=== PATIENT | female | born 1995 | race Caucasian/White ===

== ENCOUNTER 2024-08-08 20:43 | Outpatient (CLI) | payer OTHER, MEDICAID, SELFPAY ==
[2024-08-08 20:50] VITALS: BMI 35.4
[2024-08-08 21:06] VITALS: PULSE 75; RESP 16; TEMP 36.7; O2SAT 100
[2024-08-08 21:08] VITALS: BP 146/82; PULSE 71
[2024-08-08 21:22] VITALS: BP 139/81; PULSE 77
[2024-08-08 21:33] LABS: Hematocrit 34.3 % (37-47); Hemoglobin 11.9 g/dL (12.0-15.0); Mean Corp Hgb Conc 34.7 g/dL (32-36); Mean Corpuscular Hgb 30.7 pg (27.0-32.0); Mean Corpuscular Volume 88.6 fL (81-99); Mean Platelet Vol. 10.5 fl (6.2-12.0); Platelet Count 233 K/mm3 (150-450); RBC Distribution Width CV 13.2 % (11.6-14.6); RBC Distribution Width SD 42.8 fl (35.1-43.9); Red Blood Count 3.87 M/mm3 (4.2-5.4); White Blood Count 7.9 K/mm3 (4.4-11.0)
[2024-08-08 21:37] VITALS: BP 124/68; PULSE 75
[2024-08-08 21:52] VITALS: BP 129/76; PULSE 80
[2024-08-08 22:07] VITALS: BP 134/78; PULSE 73
[2024-08-08 22:07] LABS: AST(SGOT) 37 U/L (<=31); Alanine Aminotransfer ALT/SGPT 46 U/L (<=34); Creatinine, Serum 0.56 mg/dL (0.70-1.20); EST Glomerular Filtration Rate 126 (>60); Estimated Creatinine Clearance 186.77 ml/min (50-250); Uric Acid 6.7 mg/dL (2.6-6.0)
[2024-08-08 22:08] LABS: Protein, Urine (Random) 23.9 mg/dL (0.0-12.0); Protein:Creat Ratio 272 mg/g CRE (0-200)
[2024-08-09 08:54] VITALS: BP 121/75; PULSE 114
[2024-08-09 08:55] VITALS: PULSE 115; O2SAT 97
[2024-08-09 09:00] VITALS: PULSE 117; O2SAT 97
[2024-08-09 09:05] VITALS: PULSE 108; O2SAT 98
[2024-08-09 09:09] VITALS: BP 116/74; PULSE 113
[2024-08-09 09:10] VITALS: PULSE 116; O2SAT 98
--- NOTE | 2024-08-09 09:44 | OB.TRI.NOTE ---
HPI - General General Date of Admission: 08/08/24 Date of Service: 08/08/24 Chief Complaint: elevated BP at home HPI Narrative STEPHAN DOMINGUEZ, is a 29 F who presents c/o elevated BP at home. Maternal Data Information Final JIM: 09/06/24 Gestational age: 35 6/7 PFSH PFSH Home Medications ?Medication ?Instructions ?Recorded ?Last Taken ?Type aspirin 81 mg capsule 81 mg PO DAILY 08/08/24 08/08/24 History vit 115-iron fum 29 mg tab 08/08/24 08/07/24 History iron-folic acid 1 mg-dss 25 mg tablet Allergy/AdvReac Type Severity Reaction Status Date / Time No Known Allergies Allergy Verified 08/08/24 21:01 NST FHR Rate Baby A Baseline: 135 Variability:: Moderate Accelerations:: 15 x 15 Decelerations:: None NST Reactive:: Yes Uterine Activity:: irreg ctxs Assessment & Plan (1) 35 weeks gestation of : (2) High risk multigravida in third trimester: (3) Elevated blood pressure affecting , antepartum: PLAN: Plan Elevated BP at home, does not meet gest HTN criteria here, preeclampsia labs normal. D/c home w/ close f/u and return/call for signs/symptoms of preeclampsia
== END 2024-08-08 22:30 | disposition home or self-care (01) ==
LOC: WPOUT 20:45 → WP 20:46
PROVIDERS: PCP Internal Medicine; Visit Provider Obstetrics & Gynecology
DX: O99.891 Other specified diseases and conditions complicating pregnancy (principal); R03.0 Elevated blood-pressure reading, without diagnosis of hypertension; Z79.82 Long term (current) use of aspirin; Z3A.35 35 weeks gestation of pregnancy
CPT/HCPCS: 36415; 59025; 59050; 82565; 82570; 84156; 84450; 84460; 84550; 85027; 99221; G0378

== ENCOUNTER 2024-08-13 15:30 | Outpatient (CLI) | payer OTHER, MEDICAID, SELFPAY ==
[2024-08-13] VITALS (8 sets, daily range): BP systolic 125–137; BP diastolic 72–85; PULSE 71–84; RESP 16; TEMP 37.3; O2SAT 100; BMI 35.2
[2024-08-13 16:28] LABS: Hematocrit 33.7 % (37-47); Hemoglobin 11.5 g/dL (12.0-15.0); Mean Corp Hgb Conc 34.1 g/dL (32-36); Mean Corpuscular Hgb 30.2 pg (27.0-32.0); Mean Corpuscular Volume 88.5 fL (81-99); Mean Platelet Vol. 10.4 fl (6.2-12.0); Platelet Count 224 K/mm3 (150-450); RBC Distribution Width CV 13.2 % (11.6-14.6); RBC Distribution Width SD 42.5 fl (35.1-43.9); Red Blood Count 3.81 M/mm3 (4.2-5.4); White Blood Count 8.9 K/mm3 (4.4-11.0)
[2024-08-13 17:05] LABS: Protein, Urine (Random) 9.4 mg/dL (0.0-12.0); Protein:Creat Ratio 278 mg/g CRE (0-200)
[2024-08-13 17:44] LABS: AST(SGOT) 44 U/L (<=31); Alanine Aminotransfer ALT/SGPT 32 U/L (<=34); Creatinine, Serum 0.51 mg/dL (0.70-1.20); EST Glomerular Filtration Rate 129 (>60); Estimated Creatinine Clearance 204.77 ml/min (50-250); Uric Acid 5.9 mg/dL (2.6-6.0)
--- NOTE | 2024-08-15 08:54 | OB.TRI.NOTE ---
HPI - General General Date of Admission: 08/13/24 Date of Service: 08/13/24 Chief Complaint: elevated BP HPI Narrative STEPHAN DOMINGUEZ, is a 29 F who presents with eleated BP Maternal Data Information Final JIM: 09/06/24 Gestational age: 36 4/7 PFSH PFS Home Medications ?Medication ?Instructions ?Recorded ?Last Taken ?Type aspirin 81 mg capsule 81 mg PO DAILY 08/08/24 08/12/24 21:00 History 81 mg vit 115-iron fum 29 mg tab 08/08/24 08/13/24 07:00 History iron-folic acid 1 mg-dss 25 mg 1 TAB tablet cetirizine 10 mg tablet (24Hour 10 mg PO DAILY PRN allergy symptoms 08/13/24 08/13/24 07:00 History Allergy) 10 mg Allergy/AdvReac Type Severity Reaction Status Date / Time No Known Allergies Allergy Verified 08/13/24 16:05 NST FHR Rate Baby A Baseline: 140 Variability:: Moderate Accelerations:: 15 x 15 Decelerations:: None NST Reactive:: Yes Uterine Activity:: mild irritability, no regular ctxs Assessment & Plan (1) Elevated blood pressure affecting , antepartum: PLAN: no evidence of severe preeclampsia, monitor closely, f/u in office 08/15 or return prn kick counts (2) High risk multigravida in third trimester: (3) 36 weeks gestation of :
== END 2024-08-13 17:42 | disposition home or self-care (01) ==
LOC: WPOUT 15:34 → WP 15:34
PROVIDERS: PCP Internal Medicine; Referring Provider Obstetrics & Gynecology; Visit Provider Obstetrics & Gynecology
DX: O99.891 Other specified diseases and conditions complicating pregnancy (principal); R03.0 Elevated blood-pressure reading, without diagnosis of hypertension; Z79.82 Long term (current) use of aspirin; Z3A.36 36 weeks gestation of pregnancy
CPT/HCPCS: 36415; 59025; 59050; 82565; 82570; 84156; 84450; 84460; 84550; 85027; 99221; G0378

== ENCOUNTER 2024-08-18 14:05 | Inpatient (IN) | payer OTHER, MEDICAID, SELFPAY ==
[2024-08-18] VITALS (19 sets, daily range): BP systolic 134–177; BP diastolic 73–91; PULSE 57–93; RESP 15–20; TEMP 37.2–37.8; O2SAT 99–100; BMI 35.4
[2024-08-18] MEDS: Lactated Ringers 1,000 ML 50 ML IV ×2 (14:35→22:33)
--- NOTE | 2024-08-18 14:38 | PCM.HP.OB ---
HPI - General General Date of Admission: 08/18/24 Date of Service: 08/18/24 Chief Complaint: IOL HPI Narrative STEPHAN DOMINGUEZ, is a 29 F who presents for induction of labor for GHTN. Also with gestational diabetes controlled by diet. EFW 87% last week. Maternal Data Information Final JIM: 09/06/24 Gestational age: 37+2 PFSH PFSH Medical History (Updated 08/18/24 @ 14:57 by Michelle Harris) Anxiety Gestational HTN Gestational diabetes Home Medications ?Medication ?Instructions ?Recorded ?Last Taken ?Type aspirin 81 mg capsule 81 mg PO DAILY 08/08/24 08/17/24 History vit 115-iron fum 29 mg tab PO DAILY 08/08/24 08/18/24 History iron-folic acid 1 mg-dss 25 mg tablet cetirizine 10 mg tablet (24Hour 10 mg PO DAILY PRN allergy symptoms 08/13/24 08/13/24 07:00 History Allergy) 10 mg Allergy/AdvReac Type Severity Reaction Status Date / Time No Known Allergies Allergy Verified 08/13/24 16:05 Surgical History (Updated 08/18/24 @ 14:57 by Michelle Harris) H/O elbow surgery Hx of tonsillectomy Social History Smoking Status: Never smoker History 3 Elective abortions Hx Para 1 Spontaneous abortions Hx # Term Pregnancies Ectopic pregnancies Hx # Pregnancies Multiple births # of living children NST FHR Rate Baby A Baseline: 145 Variability:: Moderate Accelerations:: 15 x 15 Decelerations:: None NST Reactive:: Yes ROS Constitutional Constitutional: Denies fatigue, fever(s) or malaise Eyes Eyes: Denies change in vision ENT HEENT: Denies dizziness or headache(s) Cardiovascular Cardiovascular: Denies chest pain, dyspnea or lightheadedness Respiratory/Chest Respiratory/Chest: Denies cough or dyspnea Gastrointestinal Gastrointestinal: Denies change in bowel habits Genitourinary Genitourinary: Denies burning urination or genital lesions Integumentary Integumentary: Denies rash Neurologic Neurologic: Denies confusion, dizziness, headache(s), numbness or weakness Physical Exam Const alert and no apparent distress General Appearance: cooperative HEENT normocephalic Resp normal respiratory effort Cardio regular rate GI soft to palpation GI Narrative: gravid, nontender, appropriate for gestational age Extremity no calf tenderness General Extremity: edema Skin no wounds Rashes: No rashes noted Psych activity/motor behavior normal Labs Labs Labs: Blood Type O POSITIVE Antibody Screen Pending Hct 35.3 % (37-47) L Hgb 12.2 g/dL (12.0-15.0) Syphilis Total Ab Nonreactive (Nonreactive) Assessment & Plan (1) 37 weeks gestation of : (2) Gestational hypertension: QUALIFIERS: Trimester: third trimester Qualified Code(s): O13.3 - Gestational [-induced] hypertension without significant proteinuria, third trimester (3) Positive GBS test: (4) Gestational diabetes, diet controlled: QUALIFIERS: Trimester: third trimester Qualified Code(s): O24.410 - Gestational diabetes mellitus in , diet controlled PLAN: Plan GBS positive- pcn Epidural prn. Blackmon /pit induction
[2024-08-18 14:51] LABS: Absolute Lymphocyte Count 1.64 X10^3/uL (0.83-4.51); Absolute Neutrophil Count 6.7 X10^3/uL (2.0-7.7); Basophil# 0.01 X10^3/uL; Basophil% 0.1 % (0-1); Eosinophil# 0.04 X10^3/uL; Eosinophils% 0.5 % (0-5); Hematocrit 35.3 % (37-47); Hemoglobin 12.2 g/dL (12.0-15.0); Lymphocyte # 1.64 X10^3/ul (0.83-4.51); Lymphocyte % 18.6 % (19-41); Mean Corp Hgb Conc 34.6 g/dL (32-36); Mean Corpuscular Hgb 30.5 pg (27.0-32.0); Mean Corpuscular Volume 88.3 fL (81-99); Mean Platelet Vol. 10.9 fl (6.2-12.0); Monocyte# 0.42 X10^3/uL; Monocyte% 4.8 % (0-10); NRBC Flagged by Analyzer 0 % (0-5); Neutrophil % 75.7 % (47-70); Platelet Count 222 K/mm3 (150-450); RBC Distribution Width CV 13.2 % (11.6-14.6); RBC Distribution Width SD 43.2 fl (35.1-43.9); White Blood Count 8.8 K/mm3 (4.4-11.0)
[2024-08-18 15:28] LABS: Syphilis Antibodies Nonreactive (Nonreactive)
[2024-08-18 15:34] LABS: AST(SGOT) 26 U/L (<=31); Alanine Aminotransfer ALT/SGPT 28 U/L (<=34); Creatinine, Serum 0.61 mg/dL (0.70-1.20); EST Glomerular Filtration Rate 123 (>60); Estimated Creatinine Clearance 171.77 ml/min (50-250)
[2024-08-18] MEDS: 0.9% Normal Saline Single 100 ML IV.SOLN. INTRA-UTER (15:38)
--- NOTE | 2024-08-18 15:40 | PCM.PN.OB ---
Subjective Subjective Blackmon bulb placed without difficulty. /-3 soft. Starting PCN and pitocin. Objective Data Objective Data Vital Signs: Vital Signs Pulse BP Pulse Ox 93 156/87 H 99 08/18/24 15:33 08/18/24 15:33 08/18/24 15:06 Weight: 105.868 kg Body Mass Index (BMI) 35.4 Lab / Micro Data 08/18/24 14:35 08/18/24 15:05 Labs: Laboratory Results - last 24 hr 08/18/24 14:35: WBC 8.8, RBC 4.00 L, Hgb 12.2, Hct 35.3 L, MCV 88.3, MCH 30.5, MCHC 34.6, RDW Std Deviation 43.2, RDW Coeff of Layne 13.2, Plt Count 222, MPV 10.9, Immature Gran % (Auto) 0.300, Neut % (Auto) 75.7 H, Lymph % (Auto) 18.6 L, [place] % (Auto) 4.8, Eos % (Auto) 0.5, Baso % (Auto) 0.1, Absolute Neuts (auto) 6.7, Absolute Lymphs (auto) 1.64, Nucleated RBC % 0, Syphilis Total Ab Nonreactive, Blood Type O POSITIVE 08/18/24 15:05: Creatinine 0.61 L, Estim Creat Clear Calc 171.77, Est GFR (MDRD) Non-Af 123, Uric Acid 7.0 H, AST 26, ALT 28 NST FHR Rate Baby A Baseline: 145 Variability:: Moderate Accelerations:: 15 x 15 Decelerations:: None NST Reactive:: Yes FHR Category:: Category I Assessment & Plan (1) Gestational diabetes, diet controlled: QUALIFIERS: Trimester: third trimester Qualified Code(s): O24.410 - Gestational diabetes mellitus in , diet controlled (2) Positive GBS test: (3) Gestational hypertension: QUALIFIERS: Trimester: third trimester Qualified Code(s): O13.3 - Gestational [-induced] hypertension without significant proteinuria, third trimester (4) 37 weeks gestation of :
[2024-08-18] MEDS: Penicillin G Pot 5,000,000 UNITS in 0.9% Normal Saline (100mL MB+) 100 ML 150 UNITS IV (15:55)
[2024-08-18] MEDS: Oxytocin 15 Units/NS 250ml 15 UNITS/250 ML IV.SOLN 2 UNITS IV (16:13)
[2024-08-18 16:24] LABS: Bedside Glucose 115 mg/dL (74-106)
[2024-08-18 16:54] LABS: Protein, Urine (Random) 11.8 mg/dL (0.0-12.0)
[2024-08-18] MEDS: Acetaminophen 500 MG Tablet PO (16:59)
[2024-08-18 17:08] LABS: Protein:Creat Ratio 110 mg/g CRE (0-200)
[2024-08-18 17:21] LABS: Bedside Glucose 96 mg/dL (74-106)
[2024-08-18 18:50] LABS: Bedside Glucose 101 mg/dL (74-106)
[2024-08-18 19:42] LABS: Bedside Glucose 90 mg/dL (74-106)
--- NOTE | 2024-08-18 20:06 | PN.OBGYN_ITS ---
Subjective Subjective AROM for clear fluid. Contractions q 3. Cat I Objective Data Objective Data Vital Signs: Vital Signs Temp Pulse Resp BP Pulse Ox 99.7 F H 78 16 141/73 H 99 08/18/24 19:00 08/18/24 19:00 08/18/24 19:00 08/18/24 19:00 08/18/24 18:59 Weight: 105.868 kg Body Mass Index (BMI) 35.4 Intake & Output: Intake and Output for Last 24 Hours 08/16/24 08/17/24 08/18/24 23:59 23:59 23:59 Intake Total 100 / 100 Balance 100 / 100 Lab / Micro Data 08/18/24 14:35 08/18/24 15:05 Labs: Laboratory Results - last 24 hr 08/18/24 14:35: WBC 8.8, RBC 4.00 L, Hgb 12.2, Hct 35.3 L, MCV 88.3, MCH 30.5, MCHC 34.6, RDW Std Deviation 43.2, RDW Coeff of Layne 13.2, Plt Count 222, MPV 10.9, Immature Gran % (Auto) 0.300, Neut % (Auto) 75.7 H, Lymph % (Auto) 18.6 L, [place] % (Auto) 4.8, Eos % (Auto) 0.5, Baso % (Auto) 0.1, Absolute Neuts (auto) 6.7, Absolute Lymphs (auto) 1.64, Nucleated RBC % 0, Syphilis Total Ab Nonreactive, Blood Type O POSITIVE, Antibody Screen NEGATIVE 08/18/24 15:05: Creatinine 0.61 L, Estim Creat Clear Calc 171.77, Est GFR (MDRD) Non-Af 123, Uric Acid 7.0 H, AST 26, ALT 28 08/18/24 15:45: U Random Total Protein 11.8, Urine Creatinine 107.00, Protein/Creatinin Ratio 110 08/18/24 16:01: POC Glucose 115 H 08/18/24 16:58: POC Glucose 96 08/18/24 18:07: POC Glucose 101 08/18/24 19:05: POC Glucose 90 Assessment & Plan (1) Gestational diabetes, diet controlled: QUALIFIERS: Trimester: third trimester Qualified Code(s): O24.410 - Gestational diabetes mellitus in , diet controlled (2) Positive GBS test: (3) Gestational hypertension: QUALIFIERS: Trimester: third trimester Qualified Code(s): O13.3 - Gestational [-induced] hypertension without significant proteinuria, third trimester (4) 37 weeks gestation of : PLAN: Plan s/p 2 doses of antibiotics
[2024-08-18] MEDS: Penicillin G 3,000,000 Units 50 ML 100 UNITS IV (20:58)
[2024-08-18 23:20] LABS: Bedside Glucose 75 mg/dL (74-106)
[2024-08-19] VITALS (58 sets, daily range): BP systolic 102–166; BP diastolic 56–97; PULSE 53–114; RESP 15–17; TEMP 36.4–38.5; O2SAT 98–100
[2024-08-19] MEDS: Penicillin G 3,000,000 Units 50 ML 100 UNITS IV ×2 (01:29→06:48)
[2024-08-19] MEDS: Lactated Ringers 1,000 ML 999 ML IV (02:18)
[2024-08-19] MEDS: fentaNYL-bupivacaine (epidural) 100 ML BAG EPIDURAL ×2 (02:53→07:26)
[2024-08-19 03:52] LABS: Bedside Glucose 89 mg/dL (74-106)
[2024-08-19 04:48] LABS: Bedside Glucose 91 mg/dL (74-106)
[2024-08-19 05:55] LABS: Bedside Glucose 91 mg/dL (74-106)
[2024-08-19 07:11] LABS: Bedside Glucose 90 mg/dL (74-106)
[2024-08-19] MEDS: Ondansetron 4 MG/2 ML Vial IV (07:40)
--- NOTE | 2024-08-19 07:58 | PCM.PN.OB ---
Subjective Subjective IUPC replaced. Completely dilated and -2. Will start pushing. Cat 2 tracing. Objective Data Objective Data Vital Signs: Vital Signs Temp Pulse Resp BP Pulse Ox 98.1 F 96 17 127/72 H 100 08/19/24 07:51 08/19/24 07:43 08/19/24 07:43 08/19/24 07:43 08/19/24 07:43 Weight: 105.868 kg Body Mass Index (BMI) 35.4 Intake & Output: Intake and Output for Last 24 Hours 08/17/24 08/18/24 08/19/24 23:59 23:59 23:59 Intake Total 562.60 / 562.60 1590.60 / 1590.60 Balance 562.60 / 562.60 1590.60 / 1590.60 Lab / Micro Data 08/18/24 14:35 08/18/24 15:05 Labs: Laboratory Results - last 24 hr 08/18/24 14:35: WBC 8.8, RBC 4.00 L, Hgb 12.2, Hct 35.3 L, MCV 88.3, MCH 30.5, MCHC 34.6, RDW Std Deviation 43.2, RDW Coeff of Layne 13.2, Plt Count 222, MPV 10.9, Immature Gran % (Auto) 0.300, Neut % (Auto) 75.7 H, Lymph % (Auto) 18.6 L, [place] % (Auto) 4.8, Eos % (Auto) 0.5, Baso % (Auto) 0.1, Absolute Neuts (auto) 6.7, Absolute Lymphs (auto) 1.64, Nucleated RBC % 0, Syphilis Total Ab Nonreactive, Blood Type O POSITIVE, Antibody Screen NEGATIVE 08/18/24 15:05: Creatinine 0.61 L, Estim Creat Clear Calc 171.77, Est GFR (MDRD) Non-Af 123, Uric Acid 7.0 H, AST 26, ALT 28 08/18/24 15:45: U Random Total Protein 11.8, Urine Creatinine 107.00, Protein/Creatinin Ratio 110 08/18/24 16:01: POC Glucose 115 H 08/18/24 16:58: POC Glucose 96 08/18/24 18:07: POC Glucose 101 08/18/24 19:05: POC Glucose 90 08/18/24 22:56: POC Glucose 75 08/19/24 03:31: POC Glucose 89 08/19/24 04:25: POC Glucose 91 08/19/24 05:25: POC Glucose 91 08/19/24 06:52: POC Glucose 90 Assessment & Plan (1) Gestational diabetes, diet controlled: QUALIFIERS: Trimester: third trimester Qualified Code(s): O24.410 - Gestational diabetes mellitus in , diet controlled (2) Positive GBS test: (3) Gestational hypertension: QUALIFIERS: Trimester: third trimester Qualified Code(s): O13.3 - Gestational [-induced] hypertension without significant proteinuria, third trimester (4) 37 weeks gestation of : PLAN: Plan Start pushing
[2024-08-19] MEDS: Carboprost Tromethamine 250 MCG/ML Ampul IM (09:54)
[2024-08-19] MEDS: miSOPROStol 200 MCG Tablet 1000 MCG RC (09:56)
[2024-08-19] MEDS: Acetaminophen 500 MG Tablet PO (10:10)
--- NOTE | 2024-08-19 10:10 | EX.PCM.OBVAG ---
Assessment & Plan (1) Gestational diabetes, diet controlled: QUALIFIERS: Trimester: third trimester Qualified Code(s): O24.410 - Gestational diabetes mellitus in , diet controlled (2) Positive GBS test: (3) Gestational hypertension: QUALIFIERS: Trimester: third trimester Qualified Code(s): O13.3 - Gestational [-induced] hypertension without significant proteinuria, third trimester (4) 37 weeks gestation of : (5) High risk multigravida in third trimester: (6) Vaginal delivery: (7) First degree perineal laceration: Vaginal Delivery Maternal Presentation Maternal Presentation: Medically Indicated Induction Type of Induction: Pitocin, Blackmon Bulb and Amniotomy Vaginal Delivery Information Procedure Performed: Spontaneous Vaginal Delivery Surgeon/Practitioner: Yuni Hoang Date of Procedure: 08/19/24 Pre-Procedure Diagnosis: 37 week gestation, A1GDM, gHTN, induction of labor Post-Procedure Diagnosis: As above, Type of anesthesia: Epidural Special Medications: None Estimated Blood Loss: 300 mL Fluids Replaced: N/A Findings Description of procedure: Patient complete and pushing. Head of infant delivered in PADILLA position. Anterior shoulder delivered with gentle downward traction, followed by the posterior shoulder and body without any excessive traction, force or delay. A vigorous VFI was delivered and placed on maternal abdomen. The cord was clamped and cut after a 60 second delay by FOB. The placenta delivered spontaneously and was noted to be normal appearing and intact with a 3VC. Brisk bleeding was noted, and the uterus was boggy. Uterine exploration was performed x 1 without any retained POC's noted. Pitocin was running. Uterine massage was performed. Hemabate and rectal Cytotec were given. The uterus was then firm and bleeding scant. 3-0 Vicryl was used to repair the first degree vaginal laceration in usual fashion. A vaginal sweep was performed. Sponge and needle counts were correct. Procedure findings: VFI Apgars 8, 9 First degree vaginal laceration Presentation: Vertex Amniotic Membrane Rupture Type: Artificial Amniotic Fluid Description: Clear Placental Delivery Description: Spontaneous Specimen collected: No Cord Vessel Description: 3 Vessels Cord Entanglement: None Infant A Gender: Female (1 minute): 8 (5 minute): 9 Delayed Cord Clamping: Yes Leak Inspector healthcare consulting manager: No Post Vaginal Deli Medications given after delivery: IV Pitocin and IM Hemabate Episiotomy Description: None Laceration: 1st degree Complication Complications: No
[2024-08-19] MEDS: Oxytocin 15 Units/NS 250ml 15 UNITS/250 ML IV.SOLN 83 UNITS IV (10:13)
[2024-08-19 10:46] LABS: Bedside Glucose 97 mg/dL (74-106)
[2024-08-19 10:47] LABS: Bedside Glucose 96 mg/dL (74-106)
[2024-08-19 10:47] LABS: Bedside Glucose 106 mg/dL (74-106)
[2024-08-19] MEDS: Loperamide 2 MG Capsule 4 MG PO (12:46)
[2024-08-20 00:52] VITALS: BP 136/78; PULSE 96; RESP 16; TEMP 36.8
[2024-08-20 04:59] VITALS: BP 137/76; PULSE 80; RESP 16; TEMP 36.7
[2024-08-20 05:24] LABS: Bedside Glucose 95 mg/dL (74-106)
[2024-08-20 08:10] VITALS: BP 131/80; PULSE 90; RESP 16; TEMP 36.8
[2024-08-20 12:00] VITALS: BP 133/83; PULSE 86; RESP 16; TEMP 36.8
[2024-08-20 12:37] LABS: Absolute Lymphocyte Count 1.96 X10^3/uL (0.83-4.51); Absolute Neutrophil Count 6.4 X10^3/uL (2.0-7.7); Basophil# 0.03 X10^3/uL; Basophil% 0.3 % (0-1); Eosinophil# 0.13 X10^3/uL; Eosinophils% 1.4 % (0-5); Hematocrit 30.3 % (37-47); Hemoglobin 10.4 g/dL (12.0-15.0); Lymphocyte # 1.96 X10^3/ul (0.83-4.51); Lymphocyte % 21.5 % (19-41); Mean Corp Hgb Conc 34.3 g/dL (32-36); Mean Corpuscular Volume 90.2 fL (81-99); Mean Platelet Vol. 10.8 fl (6.2-12.0); Monocyte% 6.6 % (0-10); NRBC Flagged by Analyzer 0 % (0-5); Neutrophil # 6.37 X10^3/uL (2.7-7.7); Neutrophil % 69.8 % (47-70); Platelet Count 197 K/mm3 (150-450); RBC Distribution Width CV 13.8 % (11.6-14.6); RBC Distribution Width SD 45.1 fl (35.1-43.9); Red Blood Count 3.36 M/mm3 (4.2-5.4); White Blood Count 9.1 K/mm3 (4.4-11.0)
--- NOTE | 2024-08-20 12:47 | PN.OBGYN_ITS ---
Subjective Subjective Doing well per patient and nursing staff. Ambulating and taking PO without difficulty. Voiding and passing flatus. Pain controlled. , services for assistance. Denies headache, visual changes, chest pain, shortness of breath, leg pain or increased bleeding. Lochia normal. Objective Data Objective Data Vital Signs: Vital Signs Temp Pulse Resp BP Pulse Ox O2 Del Method 98.2 F 86 16 133/83 H 100 Room Air 08/20/24 12:00 08/20/24 12:00 08/20/24 12:00 08/20/24 12:00 08/19/24 11:44 08/20/24 04:59 Oxygen Delivery Method Room Air Weight: 233 lb 6.4 oz Body Mass Index (BMI) 35.4 Intake & Output: Intake and Output for Last 24 Hours 08/18/24 08/19/24 08/20/24 23:59 23:59 23:59 Intake Total 562.60 / 562.60 2533.23 / 2533.23 Output Total 1250 / 1250 Balance 562.60 / 562.60 1283.23 / 1283.23 Lab / Micro Data 08/20/24 12:10 08/18/24 15:05 Labs: Laboratory Results - last 24 hr 08/20/24 05:05: POC Glucose 95 08/20/24 12:10: WBC 9.1, RBC 3.36 L, Hgb 10.4 L, Hct 30.3 L, MCV 90.2, MCH 31.0, MCHC 34.3, RDW Std Deviation 45.1 H, RDW Coeff of Layne 13.8, Plt Count 197, MPV 10.8, Immature Gran % (Auto) 0.400, Neut % (Auto) 69.8, Lymph % (Auto) 21.5, [place] % (Auto) 6.6, Eos % (Auto) 1.4, Baso % (Auto) 0.3, Absolute Neuts (auto) 6.4, Absolute Lymphs (auto) 1.96, Nucleated RBC % 0 ROS Constitutional Constitutional: Reports systems reviewed and no addt'l complaints, except as documented; Denies headache(s) Eyes Eyes: Denies acute decrease in peripheral vision, blurry vision or change in vision ENT HEENT: Reports systems reviewed and no addt'l complaints, except as documented Cardiovascular Cardiovascular: Denies chest pain or dizziness Respiratory/Chest Respiratory/Chest: Denies cough, dyspnea, dyspnea on exertion, shortness of breath at rest or shortness of breath with exertion Gastrointestinal Gastrointestinal: Denies abdominal pain, diarrhea, nausea or vomiting Genitourinary Genitourinary: Denies abdominal discomfort Musculoskeletal Musculoskeletal: Denies limited range of motion Integumentary Integumentary: Reports systems reviewed and no addt'l complaints, except as documented Neurologic Neurologic: Reports systems reviewed and no addt'l complaints, except as documented Psychiatric Psychiatric: Reports systems reviewed and no addt'l complaints, except as documented Endocrine Endocrinology: Reports systems reviewed and no addt'l complaints, except as documented Hematologic/Lymphatic Hematologic/Lymphatic: Reports systems reviewed and no addt'l complaints, except as documented Allergic/Immunologic Allergic/Immunologic: Reports systems reviewed and no addt'l complaints, except as documented Physical Exam Const alert and oriented x3 General Appearance: cooperative Orientation / Consciousness: awake, oriented to person, oriented to place and oriented to time Exam Limitations: no limitations HEENT normocephalic Head and Scalp: normal to inspection, normocephalic and atraumatic Face and Sinus: normal facial exam Eyes General Eye: normal appearance of both eyes Neck full ROM Chest Chest: symmetrical chest wall rise Resp normal respiratory effort and normal air movement Auscultation: clear to auscultation bilaterally Cardio regular rate, regular rhythm, S1 normal heart sound, S2 normal heart sound, no murmurs, no rub, no gallops and no clicks GI normal to inspection, nondistended, normoactive bowel sounds and non-tender GI Narrative: Fundus firm 2 below U appearance of the vagina normal Narrative: Normal lochia rubra Bladder / Kidney Exam: no CVA tenderness Back/Spine normal ROM Extremity normal to inspection and full ROM Skin no rashes or lesions noted Neuro oriented x3, CN's II-XII intact bilaterally and moves all extremities Sensorium / Orientation: awake, alert and oriented to person Motor Exam: clonus absent Deep Tendon Reflexes: Rt Patellar (L4): 2+ and Lt Patellar (L4): 2+ Assessment & Plan (1) First degree perineal laceration: (2) Vaginal delivery: (3) Gestational diabetes, diet controlled: QUALIFIERS: Trimester: third trimester Qualified Code(s): O24.410 - Gestational diabetes mellitus in , diet controlled (4) Gestational hypertension: QUALIFIERS: Trimester: third trimester Qualified Code(s): O13.3 - Gestational [-induced] hypertension without significant proteinuria, third trimester PLAN: Plan 1) Routine PPD#1 2) Vitals stable. BP mildly elevated, will continue to monitor 3) I&O 4) Pain management 5) services PRN 6) Planning D/C home tomorrow
[2024-08-20 16:45] VITALS: BP 138/80; PULSE 79; RESP 16; TEMP 36.7; O2SAT 98
[2024-08-20] MEDS: Acetaminophen 500 MG Tablet 1000 MG PO (16:55)
[2024-08-20 20:00] VITALS: BP 141/97; PULSE 90; RESP 16; TEMP 36.5; O2SAT 97
[2024-08-21] VITALS (7 sets, daily range): BP systolic 125–146; BP diastolic 65–99; PULSE 71–75; RESP 16; TEMP 36.7–37; O2SAT 97–98
[2024-08-21] MEDS: Acetaminophen 500 MG Tablet 1000 MG PO (07:38)
--- NOTE | 2024-08-21 08:37 | PCM.DC.SUM ---
Providers Date of Admission: 08/18/24 Primary Care Physician: Dr. Lina Gonzales MD Reason For Visit: VAGINAL Diagnosis Discharge Diagnosis (1) First degree perineal laceration: Status: Acute Code(s): O70.0 - First degree perineal laceration during delivery (2) Vaginal delivery: Status: Acute Code(s): O80 - Encounter for full-term uncomplicated delivery (3) Gestational diabetes, diet controlled: Status: Acute Code(s): O24.410 - Gestational diabetes mellitus in , diet controlled Qualifiers: Trimester: third trimester Qualified Code(s): O24.410 - Gestational diabetes mellitus in , diet controlled (4) Gestational hypertension: Status: Acute Code(s): O13.9 - Gestational [-induced] hypertension without significant proteinuria, unspecified trimester Qualifiers: Trimester: third trimester Qualified Code(s): O13.3 - Gestational [-induced] hypertension without significant proteinuria, third trimester Plan PPD 2 Blood pressures remain 140/80-99- Start Labetalol 200 mg PO BID Will monitor BP today in house and if remains stable- will d/c home on medications Patient will be seen in office later this week Medications at Discharge Home Medications vit 115-iron fum 29 mg iron-folic acid 1 mg-dss 25 mg tablet tab PO DAILY 08/08/24 cetirizine 10 mg tablet (24Hour Allergy) 10 mg PO DAILY PRN allergy symptoms 08/13/24 acetaminophen 500 mg tablet 1,000 mg (2 x 500 mg) PO Q6H PRN PRN Pain 1-10 Or Fever #0 tabs 08/21/24 ibuprofen 600 mg tablet 600 mg PO Q6H PRN PRN Pain Score 1-10 #0 tabs 08/21/24 labetalol 200 mg tablet 200 mg PO BID #0 tabs 08/21/24 labetalol 200 mg tablet 200 mg PO BID #60 tabs 08/21/24 Hospital Course Operations None Procedures None Summary of Care Provided Minutes Spent on Discharge: 15 Hospital Course: Patient had vaginal delivery. Hospital course was uneventful. Physical Exam Narrative Patient seen at bedside. Denies pain. Ambulating and voiding without difficulty. Lochia decreased. Denies any HUSSEIN, visual changes, SOB, CP or RUQ pain. Desires discharge home today. Const alert and oriented x3 General Appearance: Negative for in distress HEENT normocephalic Eyes General Eye: normal appearance of both eyes Neck General: normal visual inspection Chest Chest: symmetrical chest wall rise Resp normal respiratory effort and normal air movement Effort and Inspection: symmetric chest movement; Negative for tachypneic Auscultation: clear to auscultation bilaterally Cardio regular rate and regular rhythm Peripheral Pulses: pulses 2+ throughout GI normal to inspection, nondistended, normoactive bowel sounds Narrative: Ice to perineum OB / External & Speculum: vaginal bleeding and other Lochia decreasing Uterus Palpation: uterus fundus firm (Below U) Extremity normal to inspection, full ROM and normal capillary refill Skin no rashes or lesions noted Neuro oriented x3, CN's II-XII intact bilaterally and gait normal Psych mental status grossly normal, thought process normal and activity/motor behavior normal Weight / BMI Weight Weight: 233 lb 6.4 oz Body Mass Index (BMI) 35.4 ABG / Lab / Microbiology Data 08/20/24 12:10 08/18/24 15:05 Laboratory: Laboratory Results - last 24 hr 08/20/24 12:10: WBC 9.1, RBC 3.36 L, Hgb 10.4 L, Hct 30.3 L, MCV 90.2, MCH 31.0, MCHC 34.3, RDW Std Deviation 45.1 H, RDW Coeff of Layne 13.8, Plt Count 197, MPV 10.8, Immature Gran % (Auto) 0.400, Neut % (Auto) 69.8, Lymph % (Auto) 21.5, [place] % (Auto) 6.6, Eos % (Auto) 1.4, Baso % (Auto) 0.3, Absolute Neuts (auto) 6.4, Absolute Lymphs (auto) 1.96, Nucleated RBC % 0 D/C Instructions Discharge Diet: No restrictions Discharge Activity: Return to Normal Activity, No Restrictions, May Drive, May Shower and May Take a Tub Bath (Warm water only. No bath salts, soaps, bubbles) May resume sexual activity in: 6-8 weeks Weight Bearing Status: Weight bearing as tolerated Call your doctor if you observe: Fever of 101 or Higher, Inability to urinate, Using more than 1 pad per hour, Shortness of breath, Dizziness, Chest pain, Calf discomfort and Uncontrolled pain DC O2, CPAP, BIPAP Needs Home O2 Discharge instructions: No Please Follow Up With: [facility] When: 2 weeks in office or virtual Meaningful Use Info Meaningful Use Meaningful Use Diagnoses (Choose all that apply): None applicable Ischemic Stroke Statin Dosing Therapy Reference: STATIN DOSE THERAPY REFERENCE: * Patients > 75 years receive moderate or high dose statin therapy. * Patients 75 years or YOUNGER should receive HIGH intensity statin dose unless contraindicated. You will be required to document reason for non-treatment if statin daily dose does not meet guidelines. HIGH DOSE STATIN THERAPY DAILY Atorvastatin > than or = to 40 mg Rosuvastatin > than or = to 20 mg Amlodipine + Atorvastatin > than or = to 2.5/40 mg Ezetimibe + Simvastatin 10/80 mg Simvastatin 80mg Discharge Plan Admission Admit Date/Time: 08/18/24 14:05 Primary Reason for Your Visit: Labor and Delivery Attending Provider: Yuni Hoang Primary Care Provider: Lina Gonzales Instructions Patient Instructions: Eclampsia After Childbirth, Understanding Preeclampsia Discharge Orders/Prescriptions Prescriptions: New labetalol 200 mg Tablet 200 mg PO BID Qty: 0 0RF acetaminophen 500 mg Tablet 1,000 mg PO Q6H PRN PRN (Reason: Pain 1-10 Or Fever) Qty: 0 0RF ibuprofen 600 mg Tablet 600 mg PO Q6H PRN PRN (Reason: Pain Score 1-10) Qty: 0 0RF labetalol 200 mg tablet 200 mg PO BID Qty: 60 0RF Continued prenat 115-iron [id number] 29 mg iron- 1 mg-25 mg tablet PO DAILY cetirizine [24Hour Allergy] 10 mg tablet 10 mg PO DAILY PRN (Reason: allergy symptoms) Discontinued aspirin 81 mg capsule 81 mg PO DAILY Referrals / Follow Up: Lina Gonzales MD [Primary Care Provider] - Disposition Disposition (needs filled in before D/C Order can be placed): Home, Self Care
[2024-08-21] MEDS: Labetalol 200 MG Tablet PO (08:53)
--- NOTE | 2024-08-21 11:09 | CASEMGMT ---
Social Work Labor and Delivery Unit Patient Address: [address] [place] [address] [address] [place] [address] Phone number: [phone] Date and Time of Referral:? 08/18/24, 1427 Referred By: Dr. Corado Date and time of intervention:? 08/20/24, 1200 Reason for Referral:?? father of patient- recovering alcoholic Sw completed chart review and acknowledges social work consult due to maternal family history of SILVIA. Sw presented to bedside and introduced self to mother of baby (RICH- Sheila) and father of baby (JENNI- Jesús). Sw explained reason for sw involvement and completed psychosocial assessment. Informant:?? Medical record, MOB and JENNI. History:? RICH is 29 year old female who is 3, para 1- now 2 following labor and delivery of . RICH received routine care during with [facility]. RICH presented to hospital and delivered baby on 08/19/24 at 37 weeks gestation via vaginal delivery. Baby girl, named Negra Don was born weighing 7lb 10oz with apgars of 8 and 9 at one and five minutes of life, respectfully. Baby will be followed by Dr. Velazco for pediatrics. This is first baby for RICH and JENNI together,RICH has a 9 year old son, Drew. JENNI also has two other children from a prior relationship, Tu and Rip. RICH states that she and JENNI have been together for 6.5 years after knowing each other since they were 15 years old. JENNI works as a nurse consultant in a halfway and RICH works at [employer] in [place]. Both parents are provided time off of work now that baby is here. Parents report that their housing is safe and secure, and they have obtained all necessary baby supplies for baby, including: car seat, safe sleep space, clothes, diapers and wipes. RICH states that their biggest supports at this time are maternal and paternal grandpa's and maternal aunt. JENNI states that he has been diagnosed with anxiety and is prescribed Lexapro by his PCP. FOB states that his mental health is managed and he has not been struggling with any symptoms. RICH states that she has been diagnosed with anxiety and historically prescribed Citalopram to help manage her symptoms. RICH states that she weaned herself off of the medication prior to , and feels as though her mental health was managed throughout . Since delivery MOB denies feeling down, sad, emotional or anxious. MOB reports that the only thing that has her on edge is not being able to be discharged. MOB states that she is wanting to leave, but knows medically she will have to stay one more night. Mac educated parents on signs and symptoms of baby blues and depression. RICH denies struggling with anxiety or symptoms following her other delivery. FOB states that if MOB were to struggle he would be able to recognize that and would know how to help her. MOB states that she knows she has people she can talk to if she is struggling and is open to linkage to mental health community supports if warranted. Parents deny substance use prior to and during . MOB states that her father has history of alcoholism, but has been sober for over eight years. MOB recognizes her genetic disposition and states that she has healthy and safe coping mechanisms to utilize if she feels overwhelmed or stressed. Assessment:? MOB and baby admitted following labor and delivery. Both parents have history of mental health and are connected to appropriate supports. MOB observed laying in bed comfortably and holding baby in loving and attentive manner. FOB laying on couch, but did sit up to participate in completion of assessment. Both parents were talkative and express understanding of how their mental health history may impact MOB and potentially FOB during this period. Parents have all necessary baby supplies and have natural supports in place. Plan:??? MOB and baby to be discharged when medically ready. Mac provided parents with information regarding: safe sleep, shaken baby prevention, Help Me Grow, [facility] and information regarding signs and symptoms of baby blues and depression/ anxiety. No further needs requested or indicated. Maryse Mendoza, CANTEEN OPERATOR, HOME HEALTH CLINICAL LIAISON
--- NOTE | 2024-08-21 12:09 | NURSING ---
phone call placed to amanda made aware of last 2 BP - plan is to continue monitoring for now
--- NOTE | 2024-08-21 16:10 | NURSING ---
1530 spoke with amanda made aware of last 5 BP's ok for discharge home
== END 2024-08-21 16:00 | disposition home or self-care (01) | DRG 806 ==
PROVIDERS: Advanced Practice Midwife; Obstetrics & Gynecology; Admitting Provider Obstetrics & Gynecology; PCP Internal Medicine; Referring Provider Obstetrics & Gynecology; Visit Provider Obstetrics & Gynecology
DX: O13.4 Gestational [pregnancy-induced] hypertension without significant proteinuria, complicating childbirth (principal); Z37.0 Single live birth; O98.82 Other maternal infectious and parasitic diseases complicating childbirth; O24.420 Gestational diabetes mellitus in childbirth, diet controlled; O99.824 Streptococcus B carrier state complicating childbirth; O70.0 First degree perineal laceration during delivery; Z3A.37 37 weeks gestation of pregnancy; B95.1 Streptococcus, group B, as the cause of diseases classified elsewhere; N96 Recurrent pregnancy loss; O99.892 Other specified diseases and conditions complicating childbirth
CPT/HCPCS: 59025; 59050; 82565; 82570; 82962; 84156; 84450; 84460; 84550; 85025; 86780; 86850; 86900; 86901; 99221; G0378; J2405